=== PATIENT | female | born 1995 | race Caucasian/White ===

== ENCOUNTER 2023-05-07 00:03 | Inpatient (IN) | payer OTHER ==
[~2023-05-07] VITALS: Ht 162.6 cm; Wt 133.8 kg
[~2023-05-07 00:03] MED LIST: CIPROFLOXACIN500 M1; SERTRALINE HCL25 MG
[2023-05-07 00:40] LABS: HEMATOCRIT 33.2 % (35.0-50.0); HEMOGLOBIN 11.3 g/dL (12.0-18.0); MCH 27.2 (27-36); MCHC 33.9 g/dl (30-36); MCV 80.1 fl (81-99); RBC 4.14 M/ul (4.3-5.7)
--- NOTE | 2023-05-07 00:47 | NUR ---
Pt was swabbed for Covid
[2023-05-07 00:51] LABS: CREATININE, SERUM 0.67 mg/dL (0.55-1.02)
[2023-05-07 00:56] VITALS: BP 126/83
[2023-05-07 01:16] LABS: INFLUENZA B NAA NEGATIVE (NEGATIVE); RESPIRATORY SYNCYTIAL VIR NAA NEGATIVE (NEGATIVE)
[2023-05-07 01:56] LABS: ABO O
[2023-05-07 01:57] LABS: ANTIBODY SCREEN POSITIVE; RH NEGATIVE
[2023-05-07 02:25] LABS: AMPHETAMINES, URINE NEGATIVE (NEGATIVE); BARBITURATES, URINE NEGATIVE (NEGATIVE); BENZODIAZEPINE, URINE NEGATIVE (NEGATIVE); BUPRENORPHINE, URINE NEGATIVE (NEGATIVE); CANNABINOID, URINE NEGATIVE (NEGATIVE); COCAINE, URINE NEGATIVE (NEGATIVE); ECSTASY, URINE NEGATIVE (NEGATIVE); FENTANYL, URINE NEGATIVE (NEGATIVE); METHADONE, URINE NEGATIVE (NEGATIVE); OPIATES, URINE NEGATIVE (NEGATIVE); OXYCODONE, URINE NEGATIVE (NEGATIVE); PHENCYCLIDINE, URINE NEGATIVE (NEGATIVE)
[2023-05-07 02:48] LABS: CREATININE, RANDOM URINE 59.55 mg/dL (NOT ESTABLISHED); PROTEIN/CREATININE RATIO 0.38 mg/mg (0.010-0.107)
--- NOTE | 2023-05-07 12:13 | PR ---
[facility] [address] [facility] [place], [place] [address] Signed Progress Notes IP Datetime Report Generated by CPN: 05/07/2023 12:13 PROGRESS NOTES: [id number] Impression: Normal Progression of Labor Procedures: Sterile Vag Exam Plan: Continue Present Management VITAL SIGNS: [id number] Vital Signs: Reviewed; Within Normal Limits EXAM: [id number] Dilatation: 4.0 Effacement: 75 Station: -2 Contractions: q 3 min MEMBRANES: [id number] Comments: Progressing well. head not well applied to cervix, however, for AROM. Will continue for now with present regimen. FETUS A: [id number] FHR Baseline: 120 Variability: Moderate 6-25bpm Accelerations: 15X15 Decelerations: None FHR Category: Category I Presentation: Vertex FETUS B: [id number] Signing Physician: Fransisca Del Rio MD Copies: ~ *Electronically Signed* 05/07/23 1213 FRANSISCA DEL RIO MD PATIENT NAME: HORTENSIA DORMAN PROGRESS NOTE DATE OF : 95 PHYSICIAN: FRANSISCA DEL RIO MD RPT #: [id number] REPORT IS CONFIDENTIAL AND NOT TO BE RELEASED WITHOUT AUTHORIZATION
--- NOTE | 2023-05-07 18:00 | PR ---
[facility] [facility] [address] [facility] [place], [place] [address] Signed Progress Notes IP Datetime Report Generated by CPN: 05/07/2023 18:00 PROGRESS NOTES: [id number] Impression: Normal Progression of Labor Procedures: Sterile Vag Exam Plan: Continue Present Management VITAL SIGNS: [id number] Vital Signs: Reviewed; Within Normal Limits EXAM: [id number] Dilatation: 8.0 Effacement: 90 Station: -4 Contractions: q 3 to 5 min though not picking up well MEMBRANES: [id number] Comments: Progressing well but presenting part still very high--U/S used to verify cephalic presentation. Will continue for now and hopefully baby will begin to descend into the pelvis. status reassuring at this time. FETUS A: [id number] FHR Baseline: 120 Variability: Moderate 6-25bpm Accelerations: 15X15 Decelerations: None FHR Category: Category I Presentation: Vertex FETUS B: [id number] Signing Physician: Fransisca Del Rio MD Copies: ~ *Electronically Signed* 05/07/23 1800 FRANSISCA DEL RIO MD PATIENT NAME: HORTENSIA DORMAN KAILASH PROGRESS NOTE DATE OF : 95 PHYSICIAN: FRANSISCA DEL RIO MD RPT #: [id number] REPORT IS CONFIDENTIAL AND NOT TO BE RELEASED WITHOUT AUTHORIZATION
--- NOTE | 2023-05-07 20:14 | PR ---
[facility] [address] [facility] [place], [place] [address] Signed Progress Notes IP Datetime Report Generated by CPN: 05/07/2023 20:13 PROGRESS NOTES: [id number] Impression: Arrest of Dilatation/Descent; Reassuring Heart Rate Procedures: Sterile Vag Exam Plan: Continue Present Management Other Plans: position changes VITAL SIGNS: [id number] Vital Signs: Reviewed; Within Normal Limits EXAM: [id number] Dilatation: 8.0 Effacement: 90 Station: -3 Contractions: q 3 to 5 min MEMBRANES: [id number] Comments: Baby is still very high. Cervix is unchanged. Will try different positions to see if this will allow for descent. Do not feel AROM safe at this station, unfortunately. FETUS A: [id number] FHR Baseline: 120 Variability: Moderate 6-25bpm Accelerations: 15X15 Decelerations: None FHR Category: Category II Presentation: Vertex FETUS B: [id number] Signing Physician: Fransisca Del Rio MD Copies: ~ *Electronically Signed* 05/07/232012 FRANSISCA DEL RIO MD PATIENT NAME: HORTENSIA DORMAN KAILASH PROGRESS NOTE DATE OF : 95 PHYSICIAN: FRANSISCA DEL RIO MD RPT #: [id number] REPORT IS CONFIDENTIAL AND NOT TO BE RELEASED WITHOUT AUTHORIZATION
--- NOTE | 2023-05-07 22:16 | PR ---
[facility] [address] [facility] [place], [place] [address] Signed Progress Notes IP Datetime Report Generated by CPN: 05/07/2023 22:16 PROGRESS NOTES: [id number] Impression: Arrest of Dilatation/Descent Procedures: Sterile Vag Exam Plan: Augmentation Other Plans: position changes VITAL SIGNS: [id number] Vital Signs: Reviewed; Within Normal Limits EXAM: [id number] Dilatation: 8.0 Effacement: 90 Station: -3 Contractions: q 7 to 11 min MEMBRANES: [id number] Comments: No real progress but ctx now less frequent. Also, prolonged decel with her last exam. Will allow baby to recover and will then begin low dose pitocin in effort to improve contraction pattern and bring about descent. FETUS A: [id number] FHR Baseline: 120 Variability: Moderate 6-25bpm Accelerations: 15X15 Decelerations: Prolonged FHR Category: Category II Presentation: Vertex FETUS B: [id number] Signing Physician: Fransisca Del Rio MD Copies: ~ *Electronically Signed* 05/07/23 2216 FRANSISCA DEL RIO MD PATIENT NAME: HORTENSIA DORMAN KAILASH PROGRESS NOTE DATE OF : 95 PHYSICIAN: FRANSISCA DEL RIO MD RPT #: [id number] REPORT IS CONFIDENTIAL AND NOT TO BE RELEASED WITHOUT AUTHORIZATION
--- NOTE | 2023-05-08 04:12 | PR ---
[facility] [address] [facility] [place], [place] [address] Signed Progress Notes IP Datetime Report Generated by CPN: 05/08/2023 04:12 PROGRESS NOTES: [id number] Impression: Reassuring Heart Rate Procedures: Intrauterine Pressure Catheter; Sterile Vag Exam Plan: Continue Present Management Other Plans: position changes VITAL SIGNS: [id number] Vital Signs: Reviewed; Within Normal Limits EXAM: [id number] Dilatation: 8.0 Effacement: 80 Station: -2 Contractions: q 3 to 5 min MEMBRANES: [id number] Comments: Has had some progress in station since SROM occurred but still high with minimal progress in dilation. status generally reassuring throughout. Will place IUPC to make contraction monitorin easier and to allow for easier dosing of pitocin. Suspect contraction strength inadequate to effect the changes necessary. FETUS A: [id number] FHR Baseline: 120 Variability: Moderate 6-25bpm Accelerations: 15X15 Decelerations: Variable FHR Category: Category II Presentation: Vertex FETUS B: [id number] Signing Physician: Fransisca Del Rio MD Copies: ~ *Electronically Signed* 05/08/23 0412 FRANSISCA DEL RIO MD PATIENT NAME: HORTENSIA DORMAN PROGRESS NOTE DATE OF : 95 PHYSICIAN: FRANSISCA DEL RIO MD RPT #: [id number] REPORT IS CONFIDENTIAL AND NOT TO BE RELEASED WITHOUT AUTHORIZATION
--- NOTE | 2023-05-08 07:54 | PR ---
[facility] [address] [place], [place] [address] Signed Progress Notes IP Datetime Report Generated by CPN: 05/08/2023 07:54 PROGRESS NOTES: [id number] Impression: Reassuring Heart Rate Procedures: Scalp Electrode; Sterile Vag Exam Plan: Continue Present Management Other Plans: position changes VITAL SIGNS: [id number] Vital Signs: Reviewed; Within Normal Limits EXAM: [id number] Dilatation: 8.0 Effacement: 80 Station: -2 Contractions: q 2 to 3 min MEMBRANES: [id number] Comments: Getting more comfortable again after her rebolus from anesthesia. She has made some progress in station but none in dilation in over 12 hrs. Her contraction pattern is now adequate. status generally reassuring. If she does not make further progress, is indicated. Will continue for now. FETUS A: [id number] FHR Baseline: 120 Variability: Moderate 6-25bpm Accelerations: 15X15 Decelerations: Variable FHR Category: Category II Presentation: Vertex FETUS B: [id number] Signing Physician: Fransisca Del Rio MD Copies: ~ *Electronically Signed* 05/08/23 0754 FRANSISCA DEL RIO MD PATIENT NAME: HORTENSIA DORMAN PROGRESS NOTE DATE OF : 95 PHYSICIAN: FRANSISCA DEL RIO MD RPT #: [id number] REPORT IS CONFIDENTIAL AND NOT TO BE RELEASED WITHOUT AUTHORIZATION
--- NOTE | 2023-05-08 09:14 | PR ---
[facility] [address] [place], [place] [address] Signed Progress Notes IP Datetime Report Generated by CPN: 05/08/2023 09:14 PROGRESS NOTES: [id number] Impression: Arrest of Dilatation/Descent Procedures: Sterile Vag Exam Plan: Continue Present Management Other Plans: position changes VITAL SIGNS: [id number] Vital Signs: Reviewed; Within Normal Limits EXAM: [id number] Dilatation: 8.0 Effacement: 80 Station: -2 Contractions: q 2 to 4 min MEMBRANES: [id number] Comments: Overall status has been very reassuring but recent prolonged decel which responded to stopping pit/subq terb/position changes. Unfortunately, no real change in her cervical exam. Will recheck in approx 1 yr to assess status and make determination as to whether to continue with attempt at induction or proceed with assuming status reassuring until then. FETUS A: [id number] FHR Baseline: 120 Variability: Moderate 6-25bpm Accelerations: 15X15 Decelerations: Prolonged FHR Category: Category II Presentation: Vertex FETUS B: [id number] Signing Physician: Fransisca Del Rio MD Copies: ~ *Electronically Signed* 05/08/23913 FRANSISCA DEL RIO MD PATIENT NAME: HORTENSIA DORMAN PROGRESS NOTE DATE OF : 95 PHYSICIAN: FRANSISCA DEL RIO MD RPT #: [id number] REPORT IS CONFIDENTIAL AND NOT TO BE RELEASED WITHOUT AUTHORIZATION
--- NOTE | 2023-05-08 10:32 | PR ---
[facility] [address] [facility] [place], [place] [address] Signed Progress Notes IP Datetime Report Generated by CPN: 05/08/2023 10:32 PROGRESS NOTES: [id number] Impression: Arrest of Dilatation/Descent; Reassuring Heart Rate Procedures: Sterile Vag Exam Plan: Deliver- Section Other Plans: position changes Informed Consent Obtain: Section Delivery; Risks, Benefits and Alternatives Discussed VITAL SIGNS: [id number] Vital Signs: Reviewed; Within Normal Limits EXAM: [id number] Dilatation: 8.0 Effacement: 90 Station: -2 Contractions: q 3 to 5 min MEMBRANES: [id number] Comments: No progress. Discussed delivery by and they agree to this. Will proceed as soon as staffing can be arranged. FETUS A: [id number] FHR Baseline: 120 Variability: Moderate 6-25bpm Accelerations: 15X15 Decelerations: None FHR Category: Category II Presentation: Vertex FETUS B: [id number] Signing Physician: Fransisca Del Rio MD Copies: ~ *Electronically Signed* 05/08/23 1032 FRANSISCA DEL RIO MD PATIENT NAME: HORTENSIA DORMAN PROGRESS NOTE DATE OF : 95 PHYSICIAN: FRANSISCA DEL RIO MD RPT #: [id number] REPORT IS CONFIDENTIAL AND NOT TO BE RELEASED WITHOUT AUTHORIZATION
[2023-05-08 12:46] VITALS: BP 120/66
--- NOTE | 2023-05-08 16:10 | NUR ---
05/08/23 1610 Sheets,[place] 1221 PT ARRIVED TO ROOM, VSS AND RESP EVEN AND UNLABORED. PT SHAKING AND EDUCATION GIVEN. 1223 FUNDAL CHECK NOTED AND MD AT BEDSIDE, MD CONFIRMS FUNDAL CHECK. PT DENIES CONCERNS OR PAIN WITH CHECK, SCANT AMOUNT OF BLEEDING NOTED. IV LEFT HAND FLUSHED BUT POSITIONAL, IV IN LEFT AC FLUSHED AND LR AND 30 PIT BAG INFUSING WNL. 1250 PT SIPPING WATER WITH NO PROBLEMS, HOB INCREASED SLIGHTLY. BABY TO CHEST WITH FBC RN, REPORT GIVEN. PT ABLE TO MOVE HER FEET AND LEGS. PT CONTINUES TO DENY PAIN AND NAUSEA. BED PLUGGED IN AND CALL LIGHT WITH REACH.
[2023-05-09 05:06] LABS: HEMATOCRIT 28.4 % (35.0-50.0); HEMOGLOBIN 9.5 g/dL (12.0-18.0); RDW 14.3 (10.5-15.0)
[2023-05-09 05:10] LABS: MCH 26.9 (27-36); MCHC 33.3 g/dl (30-36); MCV 80.6 fl (81-99); RBC 3.52 M/ul (4.3-5.7)
[2023-05-09 06:24] LABS: ABO O; ANTIBODY SCREEN NEGATIVE; FETAL HEMOGLOBIN SCREEN NEGATIVE; RH NEGATIVE
[2023-05-09 07:11] LABS: RHIG VIAL 1 RG22K01-B
[2023-05-09 07:12] LABS: RHIG STATUS CANDIDATE
[2023-05-09 07:13] LABS: RHIG DOSE 1
--- NOTE | 2023-05-09 09:13 | PR ---
[facility] [address] [facility] [place], [place] [address] Signed PP Progress Notes Datetime Report Generated by CPN: 05/09/2023 09:13 SUBJECTIVE: [id number] Pain: Within Normal Limits Nausea/Vomiting: Denies Flatus: Yes Vital Signs: [id number] Vital Signs: Reviewed; Within Normal Limits EXAM: Ongoing Cardiovascular: Normal Respiratory: Normal Abdomen/Uterus: Abnormal Lochia: Normal Vulva/Perineum: Not Done Breasts: Not Done CVA Tenderness: Not Done Extremities: Normal Incision: Normal Progress: Normal Exam Comments: Abdomen with active BS. Fundus firm, NT @ U. H/H 9.5/28.4, WBC 22.3, plat 217k IMPRESSION/PLAN/PROCEDURES: [id number] Impression: Normal Progression Other Plans: increase ambulation Procedures: Rhogam Progress Notes: Doing well. Will increase ambulation with shower today. Signing Physician: Fransisca Del Rio MD Copies: ~ *Electronically Signed* 05/09/23912 FRANSISCA DEL RIO MD PATIENT NAME: HORTENSIA DORMAN KAILASH PROGRESS NOTE DATE OF : 95 PHYSICIAN: FRANSISCA DEL RIO MD RPT #: [id number] REPORT IS CONFIDENTIAL AND NOT TO BE RELEASED WITHOUT AUTHORIZATION
--- NOTE | 2023-05-09 12:22 | OR ---
[facility] [address] [place], [place] [address] Signed DATE OF OPERATION: 05/08/2023 SURGEON: Fransisca Del Rio MD BODY AND FENDER MECHANIC APPRENTICE: Luther Leon DO PREOPERATIVE DIAGNOSIS: Term , secondary arrest of dilation. POSTOPERATIVE DIAGNOSIS: Term , secondary arrest of dilation, persistent occiput posterior, delivered. PROCEDURE: Primary section, low segment transverse uterine incision. ANESTHESIA: Epidural. ESTIMATED BLOOD LOSS: 650 mL. DRAINS: Hidalgo catheter. INDICATIONS AND FINDINGS: The patient is a 28-year-old female, 1, para 0, admitted at 39-2/7th weeks for induction secondary to LGA. She had a very prolonged labor with essentially no change in dilation for approximately 15 hours. At that point, despite the use of Pitocin and multiple changes in position, it was felt this represented an arrest of labor. She was taken to the operating room where she was delivered of a little boy via lower segment transverse uterine incision with Apgars of 6 and 8 and a weight of 9 pounds 6 ounces. There was thick meconium on entering the uterus. The baby was in the ROP position. The uterus, tubes, ovaries, and placenta otherwise appeared normal. DESCRIPTION OF PROCEDURE: The patient was prepped and draped in the supine position. A Pfannenstiel skin incision was made and the incision carried down through the fascia. The incision was extended laterally. The inferior and superior fascial flaps were then created. The muscles were bluntly divided and the peritoneum entered sharply and the incision extended bluntly. Electronically Signed By: FRANSISCA DEL RIO MD 05/09/23 1222 PATIENT NAME: HORTENSIA DORMAN OPERATIVE REPORT DATE OF : 95 REPORT #: [id number] PHYSICIAN: FRANSISCA DEL RIO MD PCP: ILEANA PLASENCIA REPORT IS CONFIDENTIAL AND NOT TO BE RELEASED WITHOUT AUTHORIZATION [facility] [address] [place], [place] [address] Signed The Rivera retractor was placed. The incision was made on the uterus at the upper aspect of the peritoneal reflection. There was thick meconium noted on entering the uterus. The baby was delivered with the above findings and handed off to the pediatric staff in attendance. The placenta was delivered manually. The uterus was explored with a lap tape assuring no remaining fragments. The edges of the incision were identified. The uterus was closed in 2 layers using 0-Monocryl, the first layer was a running locking stitch and the second was a vertical imbricating stitch. Bleeding points on the peritoneal edges were controlled with cautery. The abdomen was then irrigated and inspected and good hemostasis was noted. The incision line was slightly raw, however, and Ronan was sprayed over the incision to aid in hemostasis. The retractor was removed. The peritoneum was identified and closed with a running suture of 3-0 Vicryl. The muscles were reapproximated with interrupted sutures of 0-Vicryl. Bleeding points were controlled with cautery. A numerical control machine operator on the right superior fascial flap required a ivgbsr-hz-syboy suture of 0-Vicryl for control of bleeding. This area was irrigated, inspected and was felt to be hemostatic and some of the remaining Ronan was placed to further aid in hemostasis. The fascia was closed from each angle to midline with a running suture of 0-Vicryl. The subcu was irrigated, inspected and bleeding points controlled with cautery. The remaining Ronan was placed. The deep space was closed with interrupted sutures of 3-0 Vicryl. The skin was closed with carrie. All sponge and needle counts were correct. She was taken to the recovery room in good condition. MD ZULEIKA Elizabeth/MODL /[id number] Copies: ~ Electronically Signed By: FRANSISCA DEL RIO MD 05/09/23 1222 PATIENT NAME: HORTENSIA DORMAN OPERATIVE REPORT DATE OF : 95 REPORT #: [id number] PHYSICIAN: FRANSISCA DEL RIO MD PCP: ILEANA PLASENCIA REPORT IS CONFIDENTIAL AND NOT TO BE RELEASED WITHOUT AUTHORIZATION
--- NOTE | 2023-05-10 10:24 | PR ---
[facility] [address] [facility] [place], [place] [address] Signed PP Progress Notes Datetime Report Generated by CPN: 05/10/2023 10:24 SUBJECTIVE: [id number] Pain: Within Normal Limits Nausea/Vomiting: Denies Flatus: Yes Vital Signs: [id number] Vital Signs: Reviewed; Within Normal Limits EXAM: Ongoing Cardiovascular: Normal Respiratory: Not Done Abdomen/Uterus: Abnormal Lochia: Normal Vulva/Perineum: Not Done Breasts: Not Done CVA Tenderness: Not Done Extremities: Normal Incision: Normal Progress: Normal Exam Comments: Abdomen with active BS. Fundus firm, NT @ U-1. Incision clean and intact. Some carrie loosening in the center. IMPRESSION/PLAN/PROCEDURES: [id number] Impression: Normal Progression Plan: Discharge Other Plans: increase ambulation Procedures: Rhogam Progress Notes: Doing well. She is ready for D/C today. Signing Physician: Fransisca Del Rio MD Copies: ~ *Electronically Signed* 05/10/23 1024 FRANSISCA DEL RIO MD PATIENT NAME: HORTENSIA DORMAN PROGRESS NOTE DATE OF : 95 PHYSICIAN: FRANSISCA DEL RIO MD RPT #: [id number] REPORT IS CONFIDENTIAL AND NOT TO BE RELEASED WITHOUT AUTHORIZATION
== END 2023-05-10 11:25 | disposition home or self-care (01) | DRG 788 ==
LOC: FBC 00:03
PROVIDERS: ADMIT Obstetrics & Gynecology; ATTEND Obstetrics & Gynecology
PROC: 3E033VJ Introduction of Other Hormone into Peripheral Vein, Percutaneous Approach (ICD-10-PCS; 2023-05-07)
PROC: 4A1HXCZ Monitoring of Products of Conception, Cardiac Rate, External Approach (ICD-10-PCS; 2023-05-07)
PROC: 10H07YZ Insertion of Other Device into Products of Conception, Via Natural or Artificial Opening (ICD-10-PCS; 2023-05-08)
PROC: 10H073Z Insertion of Monitoring Electrode into Products of Conception, Via Natural or Artificial Opening (ICD-10-PCS; 2023-05-08)
PROC: 4A1H7CZ Monitoring of Products of Conception, Cardiac Rate, Via Natural or Artificial Opening (ICD-10-PCS; 2023-05-08)
PROC: 10D00Z1 Extraction of Products of Conception, Low, Open Approach (ICD-10-PCS; principal; 2023-05-08 10:15)
PROC: 3E0234Z Introduction of Serum, Toxoid and Vaccine into Muscle, Percutaneous Approach (ICD-10-PCS; 2023-05-10)
DX: O36.63X0 Maternal care for excessive fetal growth, third trimester, not applicable or unspecified (principal); O62.1 Secondary uterine inertia; O64.0XX0 Obstructed labor due to incomplete rotation of fetal head, not applicable or unspecified; Z3A.39 39 weeks gestation of pregnancy; Z37.0 Single live birth; O77.0 Labor and delivery complicated by meconium in amniotic fluid; O26.893 Other specified pregnancy related conditions, third trimester; Z67.41 Type O blood, Rh negative; Z11.52 Encounter for screening for COVID-19; O76 Abnormality in fetal heart rate and rhythm complicating labor and delivery; Z88.0 Allergy status to penicillin; L40.9 Psoriasis, unspecified; O99.72 Diseases of the skin and subcutaneous tissue complicating childbirth; O99.344 Other mental disorders complicating childbirth; F32.A Depression, unspecified; O99.214 Obesity complicating childbirth; E66.01 Morbid (severe) obesity due to excess calories
CPT/HCPCS: 01961; 36415; 76942; 80307; 82565; 82570; 83030; 84156; 84450; 84520; 84550; 85027; 86850; 86870; 86900; 86901; 87502; A9270; C9803; J0690; J1100; J1650; J1790; J2001; J2274; J2371; J2405; J2790; J2795; J3105; J7121; U0002